=== PATIENT | female | born 1995 | race Caucasian/White ===

== ENCOUNTER 2018-05-10 17:43 | Emergency (ER) | payer OTHER ==
[2018-05-10] MEDS ORDERED: PROMETHAZINE HCL 25 MG/ML INJ IVP ONE (18:16)
[2018-05-10] MEDS ORDERED: NS 1,000 ML IV ONE ×2 (18:16)
--- NOTE | 2018-05-10 18:22 | EDPHY ---
H & P Time Seen by Provider: 05/10/18 18:01 HPI/ROS: CHIEF COMPLAINT: Back pain HISTORY OF PRESENT ILLNESS: Patient was seen by her primary care clinic on Sunday for UTI symptoms including dysuria and hematuria and urinary frequency. Started on Macrobid but was not getting better so was seen on and was still symptomatic and changed to Cipro. She presents today with continued symptoms and back pain with subjective fever and chills. She has a urine culture dated 05/08/2018 resistant to ceftriaxone Bactrim and cefazolin. It is sensitive to quinolones, tetracyclines not tested. Her back pain is been present for 2 hr and it is bilateral associated with being febrile and the achy and having some nausea. REVIEW OF SYSTEMS: Eye: no change in vision ENT: no sore throat Cardiac: no chest pain or syncope Pulmonary: no cough or SOB Abdomen: Nausea but no vomiting diarrhea or abdominal pain Musculoskeletal: HPI Skin: no rash Neuro: Mild headache Constitutional: HPI : HPI A comprehensive 10 point review of systems is otherwise negative aside from elements mentioned in the history of present illness. PAST MEDICAL HISTORY: Depression and anxiety, strep throat Social history: Here with her boyfriend General Appearance: Alert and conversant, cooperative. Eyes: No scleral icterus. ENT, Mouth: Normal mucous membranes. Respiratory: Normal respiratory effort, breath sounds equal, lungs are clear to auscultation. Cardiovascular: Regular rate and rhythm. Gastrointestinal: Abdomen is soft and non tender. No McBurney's point tenderness. Neurological: Alert, face symmetric, normal motor and sensory in extremities. Skin: Warm and dry, no rashes. Musculoskeletal: Bilateral CVA tenderness. Psychiatric: Not agitated. Emergency Department course/MDM: Promethazine 12.5 and normal saline 2 L. She has limited oral antibiotic options given the resistance pattern of her e. coli and her allergies. Ultrasound to evaluate for hydronephrosis or possibility of perinephric abscess. 2017: discussed with Lenny and asked for advice, she recommends give quinolone if normal QT on EKG. Discussed risk and benefit with patient, consented. Discharge with 1 week of antibiotics; possible pyelonephritis. No evidence at this time of renal colic or hydronephrosis, appendicitis, perinephric abscess. PID unlikely. Smoking Status: Never smoked Constitutional: Initial Vital Signs Temperature (C) 37.1 C 05/10/18 17:55 Heart Rate 81 05/10/18 17:55 Respiratory Rate 16 05/10/18 17:55 Blood Pressure 114/71 05/10/18 17:55 O2 Sat (%) 95 05/10/18 17:55 O2 Delivery Mode Room Air Allergies/Adverse Reactions: amoxicillin Allergy (Verified 05/10/18 17:54) Penicillins Allergy (Verified 05/10/18 17:54) Sulfa (Sulfonamide Antibiotics) Allergy (Verified 05/10/18 17:54) Home Medications: Medication Instructions Recorded Citalopram 04/18/16 Ciprofloxacin 05/10/18 Ciprofloxacin HCl [Ciprofloxacin] 500 mg PO BID #14 tab 05/10/18 Macrobid 05/10/18 Promethazine HCl [Phenergan 25mg 25 mg PO Q6-8PRN PRN #10 tab 05/10/18 (RX)] Medical Decision Making - Diagnostics Imaging Results: Imaging Impressions Abdomen/Pelvis Ultrasound 05/10/18 18:17 Impression: Normal renal ultrasound. Imaging: Discussed imaging studies w/ scallop cutter Radiologist Differential Diagnosis: My differential for back pain considered including but not limited to muscle strain, pyelonephritis, perinephric abscess, kidney stone - Data Points Laboratory Results: Laboratory Results 05/10/18 18:32 05/10/18 18:32 05/10/18 05/10/18 05/10/18 18:32 18:32 18:32 WBC 6.84 10^3/uL 10^3/uL (3.80-9.50) RBC 5.37 10^6/uL H 10^6/uL (4.18-5.33) Hgb 15.5 g/dL g/dL (12.6-16.3) Hct 45.8 % % (38.0-47.0) MCV 85.3 fL fL (81.5-99.8) MCH 28.9 pg pg (27.9-34.1) MCHC 33.8 g/dL g/dL (32.4-36.7) RDW 12.4 % % (11.5-15.2) Plt Count 238 10^3/uL 10^3/uL (150-400) MPV 10.3 fL fL (8.7-11.7) Neut % (Auto) 48.8 % % (39.3-74.2) Lymph % (Auto) 41.7 % % (15.0-45.0) Harrison % (Auto) 7.6 % % (4.5-13.0) Eos % (Auto) 1.2 % % (0.6-7.6) Baso % (Auto) 0.6 % % (0.3-1.7) Nucleat RBC Rel Count 0.0 % % (0.0-0.2) Absolute Neuts (auto) 3.34 10^3/uL 10^3/uL (1.70-6.50) Absolute Lymphs (auto) 2.85 10^3/uL 10^3/uL (1.00-3.00) Absolute Monos (auto) 0.52 10^3/uL 10^3/uL (0.30-0.80) Absolute Eos (auto) 0.08 10^3/uL 10^3/uL (0.03-0.40) Absolute Basos (auto) 0.04 10^3/uL 10^3/uL (0.02-0.10) Absolute Nucleated RBC 0.00 10^3/uL 10^3/uL (0-0.01) Immature Gran % 0.1 % % (0.0-1.1) Immature Gran # 0.01 10^3/uL 10^3/uL (0.00-0.10) Sodium 140 mEq/L mEq/L (135-145) Potassium 4.2 mEq/L mEq/L (3.3-5.0) Chloride 103 mEq/L mEq/L (97-110) Carbon Dioxide 25 mEq/l mEq/l (22-31) Anion Gap 12 mEq/L mEq/L (6-14) BUN 9 mg/dL mg/dL (7-23) Creatinine 0.8 mg/dL mg/dL (0.6-1.0) Estimated GFR > 60 Glucose 82 mg/dL mg/dL (70-100) Calcium 9.9 mg/dL mg/dL (8.5-10.4) Beta HCG, Qual NEGATIVE Medications Given: Discontinued Medications Sodium Chloride (Ns) 1,000 mls @ 0 mls/hr IV EDNOW ONE; Wide Open PRN Reason: Protocol Stop: 05/10/18 18:17 Last Admin: 05/10/18 18:40 Dose: 1,000 mls Sodium Chloride (Ns) 1,000 mls @ 0 mls/hr IV EDNOW ONE; Wide Open PRN Reason: Protocol Stop: 05/10/18 18:17 Last Admin: 05/10/18 19:15 Dose: 1,000 mls Levofloxacin/Dextrose (Levaquin 750 Mg (Premix)) 150 mls @ 100 mls/hr IV EDNOW ONE PRN Reason: Protocol Stop: 05/10/18 21:47 Last Admin: 05/10/18 20:24 Dose: 150 mls Promethazine HCl (Phenergan) 12.5 mg IVP EDNOW ONE Stop: 05/10/18 18:17 Last Admin: 05/10/18 18:41 Dose: 12.5 mg Departure - Departure Disposition: Home, Routine, Self-Care Clinical Impression: Acute pyelonephritis Condition: Good Instructions: Kidney Infection (ED) Additional Instructions: continue ciprofloxacin. Total of 1 week of oral antibiotics. Please see your primary care provider in the office on Sunday. Referrals: DARRIUS MILES [Doctor of Osteopathy] - As per Instructions Prescriptions: Ciprofloxacin HCl [Ciprofloxacin] 500 mg PO BID #14 tab Promethazine HCl [Phenergan 25mg (RX)] 25 mg PO Q6-8PRN PRN #10 tab PRN Reason: nausea
[2018-05-10 18:46] LABS: PLATELET COUNT 238 10^3/uL (150-400)
--- NOTE | 2018-05-10 20:24 | CPEKG ---
Test Reason : OPEN Blood Pressure : / mmHG Vent. Rate : 072 BPM Atrial Rate : 071 BPM P-R Int : 161 ms QRS Dur : 097 ms QT Int : 414 ms P-R-T Axes : 068 073 061 degrees QTc Int : 454 ms Sinus rhythm Confirmed by Jono Ochoa ([id number]) on 05/10/2018 8:24:28 PM Referred By: Confirmed By:Jono Ochoa
[2018-05-10 22:27] VITALS: BP 123/76
== END 2018-05-10 22:30 | disposition home or self-care (01) ==
DX: N10 Acute pyelonephritis (principal); E86.9 Volume depletion, unspecified
CPT/HCPCS: 96365; J1956; J2550

== ENCOUNTER 2018-05-15 03:04 | Emergency (ER) | payer OTHER ==
[2018-05-15] MEDS ORDERED: PROMETHAZINE HCL 25 MG/ML INJ IVP ONE (03:30)
[2018-05-15] MEDS ORDERED: KETOROLAC 15 MG/1 ML SDV IVP ONE (03:30)
[2018-05-15] MEDS ORDERED: NS 1,000 ML IV ONE (03:30)
[2018-05-15] MEDS ORDERED: KETOROLAC 15 MG/1 ML SDV ONE (03:31)
[2018-05-15] MEDS ORDERED: PROMETHAZINE HCL 25 MG/ML INJ ONE (03:31)
--- NOTE | 2018-05-15 03:39 | EDPHY ---
H & P Stated Complaint: DX kidney infection, migraine, numbness, n/v, shaking Time Seen by Provider: 05/15/18 03:14 HPI/ROS: HPI The patient presents with headache associated with nausea which began at about 7 :00 p.m. Tonight slowly while at rest. She went to bed hoping that her symptoms would stop. However, she awoke at about 2:00 a.m. With progressive headache with nausea and then vomiting. She began to feel slightly dizzy and then developed tingling of her hands, feet, perioral area. Her headache continues and is throbbing, mostly occipital, associated with photophobia. She has had headaches like this before. On May 10 she was diagnosed with pyelonephritis and has been taking ciprofloxacin for this. She has been doing relatively well with no nausea and vomiting until tonight. She has not had any flank pain or fevers. REVIEW OF SYSTEMS 10 systems were reviewed and negative with the exception of the elements mentioned in the history of present illness. PMHx: Recent diagnosis of pyelonephritis on ciprofloxacin, history of depression and anxiety Soc Hx: Housed FHx: Mother with migraine-type headache PHYSICAL General Appearance: Alert, no distress Eyes: Pupils equal and round no pallor or injection ENT, Mouth: Mucous membranes moist Respiratory: There are no retractions, lungs are clear to auscultation Cardiovascular: Regular rate and rhythm Gastrointestinal: Abdomen is soft and non-tender, no masses, bowel sounds normal Back: No flank tenderness Neurological: A&O, cranial nerves 2-12 intact, moves all extremities Skin: Warm and dry, no rashes Musculoskeletal: Neck is supple non tender Extremities: symmetrical, full range of motion Psychiatric: Patient is oriented X 3, there is no agitation Source: Patient Exam Limitations: No limitations - Personal History LMP (Females 10-55): 8-14 Days Ago Current Tetanus Diphtheria and Acellular Pertussis (TDAP): Yes - Medical/Surgical History Hx Asthma: No Hx Chronic Respiratory Disease: No Hx Diabetes: No Hx Cardiac Disease: No Hx Renal Disease: No Hx Cirrhosis: No Hx Alcoholism: No Hx HIV/AIDS: No Hx Splenectomy or Spleen Trauma: No Other PMH: UTI, strep throat, depression, anxiety - Social History Smoking Status: Never smoked Constitutional: Initial Vital Signs Temperature (C) 36.7 C 05/15/18 03:07 Heart Rate 101 H 05/15/18 03:07 Respiratory Rate 18 05/15/18 03:07 Blood Pressure 102/81 H 05/15/18 03:07 O2 Sat (%) 98 05/15/18 03:07 O2 Delivery Mode Room Air Allergies/Adverse Reactions: amoxicillin Allergy (Verified 05/15/18 03:06) Penicillins Allergy (Verified 05/15/18 03:06) Sulfa (Sulfonamide Antibiotics) Allergy (Verified 05/15/18 03:06) Home Medications: Medication Instructions Recorded Citalopram 04/18/16 Ciprofloxacin 05/10/18 Ciprofloxacin HCl [Ciprofloxacin] 500 mg PO BID #14 tab 05/10/18 Macrobid 05/10/18 Promethazine HCl [Phenergan 25mg 25 mg PO Q6-8PRN PRN #10 tab 05/10/18 (RX)] Medical Decision Making Differential Diagnosis: This is a 22-year-old female with recent diagnosis of pyelonephritis currently on ciprofloxacin and Phenergan who presents from home with slow onset of headache with nausea and vomiting. She has history of similar headaches though was concerned because of her diagnosis of pyelonephritis. She here has a normal neurologic exam and is generally well-appearing. She is afebrile. I suspect she is suffering from a migraine type headache. I also have considered tension type headache, feel meningitis is less likely given no neck stiffness or fever. I will treat her here with IV fluids, Phenergan, Toradol. It appears that her pyelonephritis is well treated at this point and if we can get her vomiting under control she would be suitable for ongoing outpatient treatment of this. Patient felt better with above treatments and would like to go home. I have encouraged continued fluids by mouth. - Data Points Medications Given: Discontinued Medications Sodium Chloride (Ns) 1,000 mls @ 0 mls/hr IV EDNOW ONE; Wide Open PRN Reason: Protocol Stop: 05/15/18 03:31 Last Admin: 05/15/18 03:32 Dose: 1,000 mls Ketorolac Tromethamine (Toradol) 15 mg IVP EDNOW ONE Stop: 05/15/18 03:31 Last Admin: 05/15/18 03:32 Dose: 15 mg Promethazine HCl (Phenergan) 12.5 mg IVP ONCE ONE Stop: 05/15/18 03:31 Last Admin: 05/15/18 03:32 Dose: 12.5 mg Departure - Departure Disposition: Home, Routine, Self-Care Clinical Impression: Pyelonephritis Headache Qualifiers: Headache type: unspecified Headache chronicity pattern: acute headache Intractability: not intractable Qualified Code(s): R51 - Headache Vomiting Qualifiers: Vomiting type: unspecified Vomiting Intractability: non-intractable Nausea presence: with nausea Qualified Code(s): R11.2 - Nausea with vomiting, unspecified Condition: Good Instructions: Migraine Headache (ED) Additional Instructions: Please make sure to drink plenty of fluids. I recommend you take ibuprofen or Tylenol for your headache. You should return to the emergency department if your worse in any way. Referrals: DARRIUS MILES [Primary Care Provider] - As per Instructions
[2018-05-15 04:45] VITALS: BP 113/68
== END 2018-05-15 04:44 | disposition home or self-care (01) ==
DX: N10 Acute pyelonephritis (principal); R51 Headache; R11.2 Nausea with vomiting, unspecified; E86.9 Volume depletion, unspecified
CPT/HCPCS: 96374; J1885; J2550